=== PATIENT | female | born 1960 | race African-American/Black ===

== ENCOUNTER 2018-08-18 05:54 | Inpatient (IN) | payer OTHER ==
[2018-08-06 10:26] VITALS: BMI 33.5
[~2018-08-18 05:54] MED LIST: CEFAZOLIN 2 GM/D5W 2 GM/50 ML ML IVPB ONE; ROPIVICAINE 0.2%/MORPH PF/KETOROLAC - 51ML DISP.SYRINGE IA ONE; TRANEXAMIC ACID 1000 MG/10 ML VIAL IVPUSH ONE
[2018-08-18] MEDS ORDERED: CELECOXIB 200 MG CAPSULE ONE (06:54)
[2018-08-18] MEDS ORDERED: GABAPENTIN 300 MG CAPSULE (FP) ONE (06:54)
[2018-08-18] MEDS ORDERED: PANTOPRAZOLE 40 MG TABLET (FP) ONE (06:54)
[2018-08-18] MEDS ORDERED: oxyCODONE HCL 10 MG SUSTAINED ACTING TABLET ONE (06:54)
[2018-08-18] MEDS: PANTOPRAZOLE 40 MG TABLET (FP) PO ONE ×2 (07:00→13:16)
[2018-08-18] MEDS: GABAPENTIN 300 MG CAPSULE (FP) PO ONE ×2 (07:00→13:16)
[2018-08-18] MEDS: CELECOXIB 200 MG CAPSULE PO ONE ×2 (07:00→13:16)
[2018-08-18] MEDS: oxyCODONE HCL 10 MG SUSTAINED ACTING TABLET PO ONE ×2 (07:00→13:16)
[2018-08-18] MEDS ORDERED: TRANEXAMIC ACID 1000 MG/10 ML VIAL ONE ×2 (07:10→08:18)
[2018-08-18] MEDS ORDERED: VANCOMYCIN 1,000 MG VIAL (RESTRICTED TO ID ONLY) ONE (07:11)
[2018-08-18] MEDS ORDERED: ceFAZolin SODIUM 1 GM VIAL ONE ×2 (07:11→08:18)
--- NOTE | 2018-08-18 07:13 | HP ---
Admitting History and Physical - Admission Chief Complaint: right knee osteoarthritis x years History of Present Illness: 58-year-old female presenting in regard to her right knee. Long-standing history of right knee osteoarthritis. Patient complains of pain, limited range of motion, difficulty ambulating, and difficulty completing activities of daily living. Patient has failed conservative treatment measures including PO medications, activity modification, exercise program, and injections. At this point, patient would like to proceed with surgical intervention-right total knee arthroplasty MAKOplasty. History Source: Patient - Past Medical History Cardiovascular: Yes: HTN, Murmur Pulmonary: Yes: Asthma Gastrointestinal: Yes: GERD Musculoskeletal: Yes: Osteoarthritis - Past Surgical History Past Surgical History: Yes: Arthrosocopy, Additional Past Surgical History: See written history & physical. - Smoking History Smoking history: Former smoker Have you smoked in the past 12 months: No Aproximately how many cigarettes per day: 20 If you are a former smoker, when did you quit?: 2006 - Alcohol/Substance Use Hx Alcohol Use: Yes (RARELY) Home Medications - Allergies Allergies/Adverse Reactions: Allergies Allergy/AdvReac Type Severity Reaction Status Date / Time latex Allergy Intermediate Hives Verified 08/06/18 10:14 No Known Drug Allergies Allergy Verified 08/06/18 10:14 - Home Medications Home Medications: Ambulatory Orders Metoprolol Succinate [Toprol XL -] 100 mg PO DAILY 03/09/12 Amlodipine Besylate [Norvasc -] 10 mg PO DAILY 04/04/13 Multivitamins [Multivit ([facility] Formul[facility])] 1 tab PO DAILY 04/13/16 Ascorbic Acid [Vitamin C -] 500 mg PO BID tablet 05/01/16 Oxycodone HCl 10 mg PO Q4H PRN #90 tablet MDD 5 05/01/16 Pantoprazole Sodium [Protonix -] 40 mg PO DAILY #40 tablet.ec 05/01/16 Review of Systems - Review of Systems Musculoskeletal: reports: Crepitus (right knee), Decreased ROM (right knee), Joint Pain (right knee), Joint Swelling (right knee) Physical Examination Constitutional: Yes: Well Nourished, No Distress Eyes: Yes: Conjunctiva Clear HENT: Yes: Atraumatic, Normocephalic Neck: Yes: Supple Cardiovascular: Yes: Regular Rate and Rhythm Respiratory: Yes: Regular Gastrointestinal: Yes: Soft ...Rectal Exam: Yes: Deferred Musculoskeletal: Yes: Joint Stiffness (right knee), Joint Swelling (right knee) Assessment/Plan 58-year-old female presenting in regard to her right knee. Long-standing history of right knee osteoarthritis. Patient complains of pain, limited range of motion, difficulty ambulating, and difficulty completing activities of daily living. Patient has failed conservative treatment measures including PO medications, activity modification, exercise program, and injections. At this point, patient would like to proceed with surgical intervention-right total knee arthroplasty MAKOplasty. Pros, cons, risks, benefits, and alternatives of a right total knee arthroplasty were discussed with the patient at length. Patient confirms your understanding and consent to proceed with a right total knee arthroplasty, MAKOplasty.
[2018-08-18] MEDS ORDERED: MIDAZOLAM HCL 2 MG/2 ML SINGLE DOSE VIAL ONE ×2 (07:45→11:40)
[2018-08-18] MEDS ORDERED: BUPIVACAINE LIPOSOME/PF (EXPAREL) 266 MG/20 ML VIAL ONE (07:45)
[2018-08-18] MEDS ORDERED: PROPOFOL 20 ML ONE ×4 (08:32→10:17)
[2018-08-18] MEDS ORDERED: ePHEDrine SULFATE 50 MG/1 ML AMPULE ONE (08:52)
[2018-08-18] MEDS ORDERED: ROPIVICAINE 0.2%/MORPH PF/KETOROLAC - 51ML DISP.SYRINGE IA ONE ×3 (09:10→11:38)
[2018-08-18] MEDS ORDERED: ONDANSETRON 4 MG/2 ML VIAL IVPUSH PRN ×2 (11:51→12:46)
[2018-08-18] MEDS ORDERED: oxyCODONE HCL 5 MG TABLET PO PRN ×4 (11:52→14:49)
[2018-08-18] MEDS ORDERED: LACTATED RINGERS SOLUTION 1,000 ML IV SCH ×2 (12:00→13:00)
[2018-08-18] MEDS ORDERED: ACETAMINOPHEN 325 MG TABLET (FP) PO SCH (12:00)
[2018-08-18] MEDS ORDERED: ACETAMINOPHEN INJECTION 100 ML IVPB ONE (12:02)
[2018-08-18] MEDS ORDERED: traMADol HCL 50 MG TABLET ONE (12:02)
[2018-08-18] MEDS ORDERED: KETOROLAC TROMETHAMINE 30 MG/1 ML VIAL ONE (12:02)
--- NOTE | 2018-08-18 12:35 | OP ---
Operative Note - Note: Operative Date: 08/18/18 Pre-Operative Diagnosis: Right knee OA Operation: Right SUSAN TKA Post-Operative Diagnosis: Same as Pre-op Surgeon: Evens Arechiga Toll Bridge Operator: Amber Juares Anesthesia: Spinal Estimated Blood Loss (mls): 150
[2018-08-18] MEDS ORDERED: MAG HYDROX/AL HYDROX/SIMETH 30 ML UNIT-DOSE CUP PO PRN (12:46)
[2018-08-18] MEDS ORDERED: MAGNESIUM HYDROX 2400MG/30ML ORAL SUSPENSION 30 ML CUP PO PRN (12:46)
[2018-08-18] MEDS ORDERED: ACETAMINOPHEN 1000 MG/100 ML VIAL (NON FORMULARY) IVPB ONE (12:57)
[2018-08-18] MEDS: KETOROLAC TROMETHAMINE 30 MG/1 ML VIAL IVPUSH SCH ×2 (13:18→18:21)
[2018-08-18] MEDS: traMADol HCL 50 MG TABLET PO SCH ×2 (13:19→18:21)
[2018-08-18] MEDS: CEFAZOLIN 2 GM/D5W 2 GM/50 ML ML IVPB SCH (18:21)
[2018-08-18] MEDS ORDERED: DEXAMETHASONE SOD PHOSPHATE 10 MG/1 ML VIAL IVPB ONE (20:00)
[2018-08-18] MEDS: oxyCODONE HCL 5 MG TABLET PO PRN (20:42)
[2018-08-18] MEDS: ACETAMINOPHEN 325 MG TABLET (FP) PO SCH (20:42)
--- NOTE | 2018-08-18 21:59 | SPEC ---
DATE OF OPERATION: 08/18/2018 PREOPERATIVE DIAGNOSIS: Right knee osteoarthritis. POSTOPERATIVE DIAGNOSIS: Right knee osteoarthritis. PROCEDURE: Right total knee replacement with MAKOplasty robotic navigation. ATTENDING PHYSICIAN: Cy Michelle MD TECHNICAL WRITING LEAD/MGR: EDMUNDO García ANESTHESIA: Spinal plus sedation. ESTIMATED BLOOD LOSS: 150 mL. COMPLICATIONS: None. DISPOSITION: The patient was transferred to the PACU in stable condition. IMPLANTS USED: Hospers Triathlon size 4 femoral component, size 3 tibial component, 13-mm total stabilized polyethylene component, 32-mm patellar component. INDICATIONS: This is a 58-year-old female with a long history of bilateral knee pain and osteoarthritis. She underwent a left partial knee replacement previously and subsequently developed severe right knee pain. She was treated nonoperatively for quite some time with injections of medications and physical therapy, but continued to have severe right knee pain and ambulatory dysfunction. Most recent radiographs revealed tricompartmental osteoarthritis and she was therefore indicated for a right total knee replacement. The risks, benefits, and alternatives to the procedure were explained to the patient in great detail. She elected to proceed with the surgery. DESCRIPTION OF PROCEDURE: On the day of surgery, the patient was taken to the operating room and placed on the OR table. Spinal anesthesia was administered by the anesthesiologist. The patient was then positioned supine on the table and all bony prominences were padded. The knee was then prepped and draped in the usual sterile fashion and intravenous antibiotics were given for infection prophylaxis. A surgical time-out was then performed with the team, and the patients identity, procedure, side, availability of implants, and the administration of antibiotics was confirmed. With the knee flexed, a midline incision was made and carried down through the subcutaneous fat to the underlying retinaculum. A medial parapatellar arthrotomy was performed. This was followed by a subperiosteal dissection of the tissue off the proximal, medial tibia. A portion of fat pad was removed from under the patellar tendon, and a small portion of fat was excised off the distal supracondylar femur. Electrocautery and an SOHMamantys bipolar sealing device were used to achieve hemostasis. The knee was then flexed further and the anterior horn of the lateral meniscus was released from the midline. Next, the anterior and posterior cruciate ligaments were transected. Grade 4 changes were noted diffusely throughout the knee. Femoral and tibial checkpoints were then placed in the appropriate location using a mallet. Two parallel bicortical self-drilling pins were placed in the tibial diaphysis after making stab incisions and bluntly dissecting down to bone. Two pins were then placed in the distal supracondylar femur. The Outf[employer] navigation arrays were then attached to both the femoral and tibial pins and the lower extremity was then registered to the robotic navigation device using various joint movements, as well as inputting several dozen reference points. The knee was then taken through a full range of motion with a corrective force applied. Alignment in varus/valgus as well as flexion/extension and soft tissue balance was measured in various positions. The navigation device showed a numerical and graphic representation of the soft tissue balance. The components were repositioned virtually using the software until optimal soft tissue balance was achieved on screen. Once this was accomplished, the final plan was saved and sent to the robot. Self-retaining retractors were then placed at the joint line for exposure and protection of the collateral ligaments. The robot was brought into the sterile field and registered with the navigation device. The robotic arm with attached oscillating saw blade was then used to perform femoral and tibial bone cuts as per the saved software plan. The femoral box cut was made using the appropriately sized manual cutting guide. The knee was then irrigated. Trial components were placed and the knee was taken through a full range of motion to assess soft tissue balance and alignment. The range of motion was found to be excellent and the soft tissue balance was optimal and according to plan. The knee was then put into extension and the patella everted. The synovium around the patella was circumscribed with electrocautery. A caliper was used to measure the patellar thickness and a saw was then used to resect the patella at the chondro-osseous junction. The cut surface was then sized and drilled for the appropriate patellar button, with care taken to medialize it. A trial patella was then placed and the knee was again taken through a full range of motion. The knee was found to have both good balance and good patellar tracking. All of the components were removed except the tibial base plate. The appropriate instrumentation was used to drill and punch the proximal tibia for the keel of the final component. All bony surfaces were then cleaned with pulsatile lavage and dried. Bone cement was then prepared on the back table, and final components were cemented in place in the usual fashion. Extruded cement was removed. The polyethylene trial was placed, the knee was put into extension, and axial pressure was applied for compression while the cement hardened. The patellar button was similarly cemented into place. Once the cement had hardened, the knee was taken through a full range of motion to assess stability, balance, and patellar tracking. This was found to be optimal and the trial polyethylene was exchanged for the appropriately sized real implant. The wound was then thoroughly irrigated with normal saline. A 3-minute dilute Betadine lavage was performed. The knee was again irrigated using a pulsatile lavage device. A periarticular injection was used to locally infiltrate the capsular tissues surrounding the implant and prosthesis. Then No. 1 Polysorb and 0 VLoc 180 barbed sutures were used to close the arthrotomy. Then No. 1 Polysorb and 2-0 VLoc 90 sutures were used in the subcutaneous tissues. Then 4-0 undyed Vicryl and Dermabond skin adhesive was used to close the stab incisions made for the navigation pins. The skin was closed using both 3-0 VLoc 90 suture in a running subcuticular fashion and Dermabond skin adhesive. Once this was completed a sterile Aquacel dressing and compressive Mariano-wrap was applied. The patient was then awakened and taken to the PACU in stable condition. CY MICHELLE M.D. [id number]
[2018-08-18] MEDS: CELECOXIB 200 MG CAPSULE PO SCH (22:11)
[2018-08-18] MEDS: oxyCODONE HCL 10 MG SUSTAINED ACTING TABLET PO SCH (22:11)
[2018-08-18] MEDS: SENNOSIDES/DOCUSATE COMBO (SENNA PLUS) TABLET (UD) PO SCH (22:12)
[2018-08-18] MEDS: GABAPENTIN 300 MG CAPSULE (FP) PO SCH (22:12)
[2018-08-18] MEDS: ASCORBIC ACID 500 MG TABLET (FP) PO SCH (22:12)
[2018-08-19] MEDS: KETOROLAC TROMETHAMINE 30 MG/1 ML VIAL IVPUSH SCH ×2 (01:10→06:47)
[2018-08-19] MEDS: traMADol HCL 50 MG TABLET PO SCH ×4 (01:10→19:25)
[2018-08-19] MEDS: CEFAZOLIN 2 GM/D5W 2 GM/50 ML ML IVPB SCH (01:18)
[2018-08-19] MEDS: ACETAMINOPHEN 325 MG TABLET (FP) PO SCH ×4 (01:19→19:26)
[2018-08-19] MEDS: oxyCODONE HCL 5 MG TABLET PO PRN (04:56)
[2018-08-19 08:06] LABS: HEMATOCRIT 34.1 % (32.4-45.2); MCH 25.4 pg (25.7-33.7); MCHC 32.3 g/dl (32.0-36.0); MEAN CELL VOLUME 78.5 fl (80-96); MEAN PLT VOLUME 8.2 fl (7.5-11.1); PLATELET COUNT 333 K/MM3 (134-434); RBC 4.35 M/mm3 (3.60-5.2); RDW 14.4 % (11.6-15.6); WHITE BLOOD COUNT 10.5 K/mm3 (4.0-10.8)
[2018-08-19 08:13] LABS: ANION GAP 7 MMOL/L (8-16); BLOOD UREA NITROGEN 10 mg/dl (7-18); CALCIUM 8.7 mg/dl (8.4-10.2); CHLORIDE 102 mmol/L (98-107); CO2 24 mmol/L (22-28); CREATININE 0.8 mg/dl (0.6-1.3); GLUCOSE,RANDOM 146 mg/dl (74-106); POTASSIUM 4.1 mmol/L (3.5-5.1); SODIUM 133 mmol/L (136-145)
[2018-08-19] MEDS: oxyCODONE HCL 10 MG SUSTAINED ACTING TABLET PO SCH ×2 (09:15→21:17)
[2018-08-19] MEDS: GABAPENTIN 300 MG CAPSULE (FP) PO SCH ×2 (09:15→21:17)
[2018-08-19] MEDS: MULTIVITAMINS (DAILY MVI) TABLET (FP) PO SCH (09:16)
[2018-08-19] MEDS: ASPIRIN 325 MG TABLET PO SCH (09:16)
[2018-08-19] MEDS: SENNOSIDES/DOCUSATE COMBO (SENNA PLUS) TABLET (UD) PO SCH ×2 (09:16→21:17)
[2018-08-19] MEDS: PANTOPRAZOLE 40 MG TABLET (FP) PO SCH (09:16)
[2018-08-19] MEDS: amLODIPine BESYLATE 10 MG TABLET (FP) PO SCH (09:16)
[2018-08-19] MEDS: CELECOXIB 200 MG CAPSULE PO SCH ×2 (09:17→21:17)
[2018-08-19] MEDS: ASCORBIC ACID 500 MG TABLET (FP) PO SCH ×2 (09:17→21:18)
[2018-08-19] MEDS ORDERED: oxyCODONE HCL 5 MG TABLET PO PRN ×2 (10:33)
--- NOTE | 2018-08-19 10:36 | PN ---
Progress Note, Physician Chief Complaint: s/p right total knee replacement SUSAN under spinal anesthesia History of Present Illness: post op day one, peripheral nerve block for post op pain, - Current Medication List Current Medications: Active Medications Acetaminophen (Tylenol -) 650 mg PO Q6H [facility] Stop: 08/21/18 19:59 Last Admin: 08/19/18 01:19 Dose: 650 mg Al Hydroxide/Mg Hydroxide (Mylanta Oral Suspension -) 30 ml PO Q4H PRN PRN Reason: DYSPEPSIA Amlodipine Besylate (Norvasc -) 10 mg PO DAILY [facility] Last Admin: 08/19/18 09:16 Dose: 10 mg Ascorbic Acid (Vitamin C -) 500 mg PO BID [facility] Last Admin: 08/19/18 09:17 Dose: 500 mg Aspirin (Asa -) 325 mg PO DAILY@0800 [facility] Last Admin: 08/19/18 09:16 Dose: 325 mg Celecoxib (Celebrex -) 200 mg PO BID [facility] Last Admin: 08/19/18 09:17 Dose: 200 mg Gabapentin (Neurontin -) 300 mg PO BID [facility] Stop: 08/21/18 21:59 Last Admin: 08/19/18 09:15 Dose: 300 mg Magnesium Hydroxide (Milk Of Magnesia -) 30 ml PO PRN PRN PRN Reason: CONSTIPATION Metoprolol Succinate (Toprol Xl -) 100 mg PO DAILY [facility] Last Admin: 08/19/18 09:17 Dose: 100 mg Multivitamins/Minerals/Vitamin C (Tab-A-Vit -) 1 tab PO DAILY [facility] Last Admin: 08/19/18 09:16 Dose: 1 tab Ondansetron HCl (Zofran Injection) 4 mg IVPUSH Q6H PRN PRN Reason: NAUSEA Oxycodone HCl (Oxycontin -) 10 mg PO BID [facility] Stop: 08/21/18 11:53 Last Admin: 08/19/18 09:15 Dose: 10 mg Pantoprazole Sodium (Protonix -) 40 mg PO DAILY [facility] Last Admin: 08/19/18 09:16 Dose: 40 mg Senna/Docusate Sodium (Pericolace -) 2 tablet PO BID [facility] Last Admin: 08/19/18 09:16 Dose: 2 tablet Tramadol HCl (Ultram -) 50 mg PO Q6H [facility] Last Admin: 08/19/18 06:47 Dose: 50 mg - Objective Vital Signs: Vital Signs Temperature 98.0 F 08/19/18 04:00 Pulse Rate 68 08/19/18 09:18 Respiratory Rate 18 08/19/18 04:00 Blood Pressure 137/85 08/19/18 04:00 O2 Sat by Pulse Oximetry (%) 100 08/19/18 00:24 Constitutional: Yes: Well Nourished Cardiovascular: Yes: WNL Respiratory: Yes: WNL Gastrointestinal: Yes: WNL Labs: CBC, BMP 08/19/18 07:25 08/19/18 07:25 Assessment/Plan Patient doing well, no adverse anesthetic reaction, complainin about pain not fully relieved by oral analgesics, will increase oxycodone dose otherwise dept of anesthesiology will sign off care at this time
--- NOTE | 2018-08-20 00:59 | PN ---
Progress Note (short form) - Note Progress Note: Pt seen and examined. Doing well. AVSS Selected Entries 08/19/18 08/19/18 20:35 22:00 Temperature 97.6 F Pulse Rate 51 L Respiratory 18 Rate Blood Pressure 119/67 O2 Sat by Pulse 99 Oximetry (%) Oxygen Delivery Room Air Method Laboratory Tests 08/19/18 08/19/18 07:25 07:25 WBC 10.5 Hgb 11.0 Hct 34.1 Plt Count 333 Sodium 133 L Potassium 4.1 Chloride 102 Carbon Dioxide 24 Anion Gap 7 L BUN 10 Creatinine 0.8 Creat Clearance w eGFR > 60 Random Glucose 146 H D Calcium 8.7 Gen: NAD RLE: c/d/i, NVID A/P POD# 1 s/p R TKA PT/OOB D/C home in AM
--- NOTE | 2018-08-20 01:00 | DS ---
Physical Examination Vital Signs: Vital Signs Temperature 97.6 F 08/19/18 22:00 Pulse Rate 51 L 08/19/18 22:00 Respiratory Rate 18 08/19/18 22:00 Blood Pressure 119/67 08/19/18 22:00 O2 Sat by Pulse Oximetry (%) 99 08/19/18 20:35 Labs: CBC, BMP 08/19/18 07:25 08/19/18 07:25 Discharge Summary Reason For Visit: OSTEOARTHRITIS RIGHT KNEE Current Active Problems Osteoarthritis of right knee (Acute) Procedures: Principal: Right SUSAN TKA Hospital Course: Admitted for elective surgery. Procedure performed without complications. Pt received postoperative antibiotic prophylaxis and DVT ppx. Ambulated with physical therapy. Stable for discharge home with outpatient followup. Condition: Stable - Instructions Diet, Activity, Other Instructions: Dr. Arechiga - Knee Replacement Instructions Keep the Aquacel dressing on until removed by Dr. Arechiga in 10-14 days - it is antibacterial and waterproof and you can shower with it on. Call the office for a follow-up appointment with Dr. Arechiga in 10-14 days. Take one Aspirin 325mg daily for 6 weeks to prevent blood clots in your legs. Take one Pantoprazole 40mg daily for 6 weeks to protect against heartburn and ulcers. Take Cephalexin (antibiotic) 3x/day for 10 days to help prevent skin infection. Take Celebrex 200mg twice daily for 30 days to reduce swelling and inflammation. Take a multivitamin, stool softener, and extra Vitamin C supplement daily. For pain: *Mild pain (1-3/10): Take 1 Tramadol tablet every 4 hours as needed. Moderate/Severe pain (4+/10): Take 1 Tramadol tablet and 1 Oxycodone tablet every 4 hours as needed. Activity: You can put as much weight on the operative leg as you want. Always use a walker or cane for balance and to prevent falls. Expect to see swelling/bruising from the operative site all the way down to your toes. Wear the compression stocking on the operative side during the day to minimize how much swelling there is in your foot/ankle. Don't wear the stocking at night. You don't have to wear a stocking on the other side. Disposition: [facility]/HOME HEALTH CARE - Home Medications Comprehensive Discharge Medication List: Ambulatory Orders Metoprolol Succinate [Toprol XL -] 100 mg PO DAILY 03/09/12 Amlodipine Besylate [Norvasc -] 10 mg PO DAILY 04/04/13 Multivitamins [Multivit ([facility] Formul[facility])] 1 tab PO DAILY 04/13/16 Pantoprazole Sodium [Protonix -] 40 mg PO DAILY #40 tablet.ec 05/01/16 Ascorbic Acid [Vitamin C -] 500 mg PO BID tablet 08/20/18 Aspirin [ASA -] 325 mg PO DAILY@0800 tablet 08/20/18 Celecoxib [CeleBREX -] 200 mg PO BID #60 capsule 08/20/18 Cephalexin Monohydrate [Keflex -] 500 mg PO TID #30 capsule 08/20/18 Pantoprazole Sodium [Protonix -] 40 mg PO DAILY #40 tablet.ec 08/20/18 Sennosides/Docusate Sodium [Pericolace -] 2 tablet PO BID tablet 08/20/18 oxyCODONE HCL [Roxicodone -] 20 mg PO Q4H PRN #90 tablet MDD 6 08/20/18 traMADol HCL [Ultram -] 50 mg PO Q4H PRN #42 tablet MDD 6 08/20/18
[2018-08-20] MEDS: ACETAMINOPHEN 325 MG TABLET (FP) PO SCH ×2 (01:43→08:02)
[2018-08-20] MEDS: traMADol HCL 50 MG TABLET PO SCH ×2 (01:43→06:19)
[2018-08-20 06:11] VITALS: PULSE 59; TEMP 98
[2018-08-20] MEDS: ASPIRIN 325 MG TABLET PO SCH (08:01)
[2018-08-20 08:15] LABS: HEMATOCRIT 32.6 % (32.4-45.2); HEMOGLOBIN 10.9 GM/dl (10.7-15.3); MCH 26.6 pg (25.7-33.7); MCHC 33.5 g/dl (32.0-36.0); MEAN CELL VOLUME 79.3 fl (80-96); MEAN PLT VOLUME 8.4 fl (7.5-11.1); PLATELET COUNT 322 K/MM3 (134-434); RBC 4.11 M/mm3 (3.60-5.2); RDW 14.2 % (11.6-15.6); WHITE BLOOD COUNT 7.8 K/mm3 (4.0-10.8)
[2018-08-20 08:25] LABS: ANION GAP 9 MMOL/L (8-16); BLOOD UREA NITROGEN 17 mg/dl (7-18); CALCIUM 8.7 mg/dl (8.4-10.2); CHLORIDE 104 mmol/L (98-107); CO2 26 mmol/L (22-28); CREATININE 0.9 mg/dl (0.6-1.3); GLUCOSE,RANDOM 111 mg/dl (74-106); POTASSIUM 3.4 mmol/L (3.5-5.1); SODIUM 139 mmol/L (136-145)
[2018-08-20 09:05] VITALS: BP 116/60
[2018-08-20] MEDS: amLODIPine BESYLATE 10 MG TABLET (FP) PO SCH (09:05)
[2018-08-20] MEDS: SENNOSIDES/DOCUSATE COMBO (SENNA PLUS) TABLET (UD) PO SCH (09:05)
[2018-08-20] MEDS: CELECOXIB 200 MG CAPSULE PO SCH (09:05)
[2018-08-20] MEDS: PANTOPRAZOLE 40 MG TABLET (FP) PO SCH (09:05)
[2018-08-20] MEDS: MULTIVITAMINS (DAILY MVI) TABLET (FP) PO SCH (09:05)
[2018-08-20] MEDS: GABAPENTIN 300 MG CAPSULE (FP) PO SCH (09:05)
[2018-08-20] MEDS: ASCORBIC ACID 500 MG TABLET (FP) PO SCH (09:05)
[2018-08-20] MEDS: oxyCODONE HCL 10 MG SUSTAINED ACTING TABLET PO SCH (09:05)
--- NOTE | 2018-08-21 11:15 | PATH ---
Surgical Pathology Report Patient Name: MARY PRUITT Med. Rec. #: [id number] /Age/Gender: 1960 (Age: 58) / F Account: [id number] Location: [facility] MED-SURG Taken: 08/18/2018 Received: 08/18/2018 Reported: 08/21/2018 Physicians: Evens Arechiga M.D. Specimen(s) Received RIGHT KNEE BONE Clinical History Osteoarthritis right knee Final Diagnosis BONE, KNEE, RIGHT, TOTAL KNEE REPLACEMENT MAKOPLASTY: BONE WITH DEGENERATIVE JOINT DISEASE. FIBROSYNOVIAL TISSUE WITH PROMINENT LYMPHOPLASMACYTIC (CHRONIC) INFLAMMATORY INFILTRATE AND REACTIVE SYNOVIAL HYPERPLASIA. Comment: Although these findings are non-specific, dense lymphoplasmacytic infiltrate involving synovium with reactive synovial hyperplasia may be seen in association with rheumatoid arthritis. Correlation with clinical/radiologic and serologic findings is suggested Electronically Signed Shira Clark M.D. Gross Description Received in formalin labeled "right knee bone," is a 10.0 x 9.5 x 1.4 cm aggregate of multiple portions of bone and soft tissue. The tibial plateau measures 7.0 x 4.8 x 1.2 cm. There is a 1.8 cm in greatest dimension area of eburnation present. The remaining articular surfaces are wilson-yellow and focally granular. The underlying trabecular bone is yellow and hard. Ear Nose Throat Surgeon sections are submitted in one cassette, following decalcification. /08/20/201808/20/2018
== END 2018-08-20 10:35 | disposition home health service (06) | DRG 302 ==
LOC: FM/S 05:54
PROVIDERS: ADMIT Student in an Organized Health Care Education/Training Program; ATTEND Student in an Organized Health Care Education/Training Program
PROC: 8E0Y0CZ Robotic Assisted Procedure of Lower Extremity, Open Approach (ICD-10-PCS; 2018-08-18)
PROC: 0SRC0J9 Replacement of Right Knee Joint with Synthetic Substitute, Cemented, Open Approach (ICD-10-PCS; principal; 2018-08-18 08:52)
DX: M17.11 Unilateral primary osteoarthritis, right knee (principal); I10 Essential (primary) hypertension; K21.9 Gastro-esophageal reflux disease without esophagitis; J45.909 Unspecified asthma, uncomplicated
CPT/HCPCS: 36415; 73560-TC-RT-FY; 80048; 85027; 88305-TC; 88311-TC; 94760; 97116-GP; 97162-GP; J0131; J1100